=== PATIENT | male | born 1980 | race Two or more races ===

== ENCOUNTER 2018-04-08 21:01 | Emergency (ER) | payer OTHER ==
[2018-04-08 21:22] VITALS: BP 142/99
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
== END 2018-04-08 23:50 | disposition home or self-care (01) ==
LOC: ER 21:01
DX: M54.9 Dorsalgia, unspecified (principal); M54.2 Cervicalgia; V87.7XXA Person injured in collision between other specified motor vehicles (traffic), initial encounter
CPT/HCPCS: 99283